=== PATIENT | male | born 1990 | race Caucasian/White ===

== ENCOUNTER 2016-08-28 11:48 | Emergency (ER) | payer OTHER ==
[2016-08-28 11:57] VITALS: BP 113/54; PULSE 78; TEMP 98; BMI 25.8
[2016-08-28] MEDS ORDERED: DIPHTH,PERTUSS(ACELL),TET 0.5 ML DISP.SYRIN IM ONE (12:32)
[2016-08-28] MEDS ORDERED: BACITRACIN 30 GM TUBE TOPICAL OINTMENT TP ONE (13:11)
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
[2016-08-28] MEDS ORDERED: BACITRACIN 30 GM TUBE TOPICAL OINTMENT ONE (13:17)
== END 2016-08-28 13:20 | disposition home or self-care (01) ==
LOC: JERFT 11:48
PROC: 3E0234Z Introduction of Serum, Toxoid and Vaccine into Muscle, Percutaneous Approach (ICD-10-PCS; principal; 2016-08-28)
DX: S80.812A Abrasion, left lower leg, initial encounter (principal); S80.811A Abrasion, right lower leg, initial encounter; V18.0XXA Pedal cycle driver injured in noncollision transport accident in nontraffic accident, initial encounter; Y92.410 Unspecified street and highway as the place of occurrence of the external cause; Y93.55 Activity, bike riding; Y99.8 Other external cause status
CPT/HCPCS: 73630-TC-RT; 90471; 90715; 99281-25

== ENCOUNTER 2017-10-28 19:48 | Emergency (ER) | payer OTHER ==
[2017-10-28 19:54] VITALS: BP 121/81; PULSE 99; TEMP 99.1; BMI 31.7
[2017-10-28] MEDS ORDERED: METHOCARBAMOL 500 MG TABLET PO ONE (20:24)
[2017-10-28] MEDS ORDERED: ACETAMINOPHEN 500 MG TABLET (FP) PO ONE (20:26)
[2017-10-28] MEDS ORDERED: ACETAMINOPHEN 325 MG TABLET (FP) ONE (20:31)
[2017-10-28] MEDS ORDERED: METHOCARBAMOL 500 MG TABLET ONE (20:31)
[2017-10-28] MEDS: ACETAMINOPHEN 500 MG TABLET (FP) PO ONE ×2 (20:35→20:37)
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
[2017-10-28] MEDS ORDERED: DIPHTH,PERTUSS(ACELL),TET 0.5 ML DISP.SYRIN IM ONE (22:53)
[2017-10-28] MEDS ORDERED: BACITRACIN 15 GM TUBE TOPICAL OINTMENT TP ONE (22:53)
[2017-10-28] MEDS ORDERED: BACITRACIN 0.9 GM PACKET ONE (23:27)
== END 2017-10-28 23:36 | disposition home or self-care (01) ==
LOC: JER 19:48
PROC: 3E0234Z Introduction of Serum, Toxoid and Vaccine into Muscle, Percutaneous Approach (ICD-10-PCS; principal; 2017-10-28)
DX: G44.319 Acute post-traumatic headache, not intractable (principal); S50.312A Abrasion of left elbow, initial encounter; S40.211A Abrasion of right shoulder, initial encounter; S30.811A Abrasion of abdominal wall, initial encounter; V28.4XXA Motorcycle driver injured in noncollision transport accident in traffic accident, initial encounter; Y92.414 Local residential or business street as the place of occurrence of the external cause; Y93.89 Activity, other specified; Y99.8 Other external cause status
CPT/HCPCS: 70450-TC; 72125-TC; 90715; 99281-25